=== PATIENT | male | born 1965 | race Two or more races ===

== ENCOUNTER 2024-11-04 18:10 | Inpatient (IN) | payer MEDICAID, OTHER ==
[~2024-11-04] VITALS: Ht 157.5 cm; Wt 78.7 kg
[2024-11-04 18:35] LABS: Basophils # (auto) 0 10 ^3/uL (0-0.2); Basophils % (auto) 0.3 % (0.0-2.0); Eosinophils # (auto) 0 10 ^3/uL (0-0.8); Eosinophils % (auto) 0.3 % (0.0-7.0); Hematocrit 45.4 % (41.0-53.0); Hemoglobin 15.5 g/dL (13.5-17.5); Lymphocytes # (auto) 3.3 10 ^3/uL (0.4-5.4); Lymphocytes % (auto) 26.1 % (10.0-50.0); Mean Corpuscular Hemoglobin 31.3 pg (28.0-32.0); Mean Corpuscular Volume 91.9 fL (80.0-100.0); Monocytes # (auto) 0.6 10 ^3/uL (0-1.3); Monocytes % (auto) 4.6 % (0.0-12.0); Neutrophils # (auto) 8.8 10 ^3/uL (1.6-8.6); Neutrophils % (auto) 68.7 % (37.0-80.0); Platelet Count (auto) 268 10^3/uL (140-450); Red Blood Cells 4.95 10^6/uL (4.5-5.90); Red Cell Distribution Width 13.4 % (11.8-14.3); White Blood Cell 12.7 10^3/uL (4.4-10.8)
--- NOTE | 2024-11-04 18:44 | ED.PDOC ---
Altered Mental Status HPI Comments 59-year-old male came to ER with sister due to altered level of consciousness. Per sister, patient has no medical problems, patient visiting from [place]. Patient last seen normal at 3:00 p.m. as he went for a nap. He woke up at 5:00 p.m., with slurred speech, weakness of both legs, imbalance, facial twitching, speaking incomprehensible words at times. Patient still follows commands. Sister denies any possible drug or alcohol intake. Denies any new medications. Blood sugar upon arrival was 153, with a blood pressure 139/70 mm Hg Chief Complaint: Altered level of consciousness Time Seen by MD: 18:43 Reviewed Notes: Nurses Notes Allergies: Coded Allergies: NO KNOWN ALLERGIES (Unverified , 11/04/24) Information Source: Patient, Relative (Sibling) Mode of Arrival: Ambulatory Severity: Unable to Care for Self Timing: Minutes Duration: Since onset Quality: Change in Behavior, Confusion History of: None Associated Signs and Symptoms: Slurred Speech Past Medical History PAST MEDICAL HISTORY: Denies Surgical History: Denies all surgeries Family History Family History: Reviewed,noncontributory to illness Social History Smoker: Non-Smoker Alcohol: Denies ETOH Use Drugs: Denies Drug Use Lives In: Home Unable to Obtain due to: Altered Mental Status Physical Exam General Appearance: No Apparent Distress, Normal HEENT: Normal ENT Inspection, Pharynx Normal, TMs Normal Neck: Full Range of Motion, Non-Tender, Normal, Normal Inspection Respiratory: Chest Non-Tender, Lungs Clear, No Accessory Muscle Use, No Respiratory Distress, Normal Breath Sounds Cardiovascular: No Edema, No JVD, No Murmur, No Gallop, Normal Peripheral Pulses, Regular Rate/Rhythm Breast Exam: Deferred Gastrointestinal: No Organomegaly, Non Tender, No Pulsatile Mass, Normal Bowel Sounds, Soft Genitalia: Deferred Pelvic: Deferred Rectal: Deferred Extremities: No calf tenderness, Normal capillary refill, Normal inspection, Normal range of motion, Non-tender, No pedal edema Musculoskeletal : Apperance: Normal Neurologic: Alert, glove cutter II-XII nml as Tested, No Motor Deficits, Normal Affect, Normal Mood, No Sensory Deficits, Other (NIH Stroke Scale/Score (NIHSS) from [email or web address] on 11/04/2024) Cerebellar Function: Normal Reflexes: Normal Skin: Dry, Normal Color, Warm Lymphatic: No Adenopathy Was a procedure done? Was a procedure done?: No Differential Diagnosis (ALOC) Differential Diagnosis: Encephalopathy, Sepsis, Hypoxemia, CVA, Drug Overdose, ETOH Intoxication X-Ray, Labs, Meds, VS Vital Signs Date Time Temp Pulse Resp B/P (MAP) Pulse Ox O2 Delivery O2 Flow Rate FiO2 11/04/24 20:03 91 14 94 Room Air* 0 21 11/04/24 20:03 98.0 91 14 120/74 (89) 94 98.0 11/04/24 18:49 88 12 98 Nasal Cannula* 3 32 11/04/24 18:49 88 12 115/74 (88) 98 11/04/24 18:30 97.2 91 18 139/73 (95) 99 97.2 Lab Test 11/04/24 18:46 11/04/24 18:22 11/04/24 18:18 11/04/24 18:01 Range/Units POC Glucose 146 H 133 H 70-106 mg/dl White Blood Count 12.7 H 4.4-10.8 10^3/uL Red Blood Count 4.95 4.5-5.90 10^6/uL Hemoglobin 15.5 13.5-17.5 g/dL Hematocrit 45.4 41.0-53.0 % Mean Corpuscular Volume 91.9 80.0-100.0 fL Mean Corpuscular Hemoglobin 31.3 28.0-32.0 pg Mean Corpuscular Hemoglobin Concent 34.0 32.0-36.0 g/dL Red Cell Distribution Width 13.4 11.8-14.3 % Platelet Count 268 140-450 10^3/uL Mean Platelet Volume 8.1 6.9-10.8 fL Neutrophils (%) (Auto) 68.7 37.0-80.0 % Lymphocytes (%) (Auto) 26.1 10.0-50.0 % Monocytes (%) (Auto) 4.6 0.0-12.0 % Eosinophils (%) (Auto) 0.3 0.0-7.0 % Basophils (%) (Auto) 0.3 0.0-2.0 % Neutrophils # (Auto) 8.8 H 1.6-8.6 10 ^3/uL Lymphocytes # (Auto) 3.3 0.4-5.4 10 ^3/uL Monocytes # (Auto) 0.6 0-1.3 10 ^3/uL Eosinophils # (Auto) 0 0-0.8 10 ^3/uL Basophils # (Auto) 0 0-0.2 10 ^3/uL Nucleated Red Blood Cells 0.0 % Prothrombin Time 10.7 9.3-11.8 sec Prothrombin Time INR 1.01 0.9-1.15 Activated Partial Thromboplast Time 23.5 L 24.5-34.5 SEC Sodium Level 138 136-145 mmol/L Potassium Level 3.9 3.5-5.1 mmol/L Chloride Level 106 98-107 mmol/L Carbon Dioxide Level 22 20-31 mmol/L Anion Gap 10 5-15 Blood Urea Nitrogen 17 9-23 mg/dL Creatinine 1.28 0.700-1.30 mg/dL Glomerular Filtration Rate Calc 65 >90 mL/min BUN/Creatinine Ratio 13.3 10.0-20.0 Serum Glucose 141 H 74-106 mg/dL Calcium Level 9.4 8.7-10.4 mg/dL Magnesium Level 2.5 1.6-2.6 mg/dL Total Bilirubin 0.6 0.2-1.0 mg/dL Aspartate Amino Transferase (AST) 29 13-40 U/L Alanine Aminotransferase (ALT) 21 7-40 U/L Alkaline Phosphatase 102 46-116 U/L Total Protein 7.5 5.7-8.2 g/dL Albumin 4.6 3.2-4.8 g/dL Plasma/Serum Blood Alcohol < 3.0 <10 mg/dL Salicylates Level < 3.0 -30 mg/dL Acetaminophen Level < 2.0 L 10.0-20.0 UG/ML Current Medications Medications (Trade) Dose Ordered Sig/Thong Route Start Time Stop Time Status Last Admin Sodium Chloride 1,000 ml @ 1,000 mls/hr Q1H ONCE IVB 11/04/24 19:15 11/04/24 20:14 DC 11/04/24 19:18 EXAM: CT Head Without Intravenous Contrast CLINICAL INDICATION: ALOC, slurred speech TECHNIQUE: Axial computed tomography images of the head/brain without intravenous contrast. This CT exam was performed using one or more of the following dose reduction techniques: automated exposure control, adjustment of the mA and/or kV according to patient size, and/or use of iterative reconstruction technique. CONTRAST: RADIATION DOSE: CTDIvol = 55.18 mGy, DLP = 963.52 mGy-cm COMPARISON: None FINDINGS: BRAIN AND EXTRA-AXIAL SPACES: The cerebral and cerebellar sulci are prominent consistent with brain atrophy. No acute intracranial hemorrhage, midline shift or mass effect. If symptoms persist, further evaluation with MRI is recommended. Mild areas of decreased attenuation in the deep cerebral white matter are consistent with mild small vessel ischemic/degenerative changes. BONES/JOINTS: Unremarkable. No acute fracture. SOFT TISSUES: Unremarkable. SINUSES: Unremarkable as visualized. No acute sinusitis. MASTOID AIR CELLS: Unremarkable as visualized. No mastoid effusion. OTHER FINDINGS: . . IMPRESSION: 1. Generalized brain atrophy. 2. No acute intracranial hemorrhage, midline shift or mass effect. If symptoms persist, further evaluation with MRI is recommended. 3. Mild small vessel ischemic/degenerative changes. Time of 1ST Reevaluation: 18:38 Reevaluation 1ST: Unchanged Patient Education/Counseling: Diagnosis, Treatment Family Education/Counseling: Diagnosis, Treatment Departure 1 Departure Time of Disposition: 20:19 Impression: Primary Impression: Metabolic encephalopathy Disposition: ADMITTED INPATIENT Admit to: Tele Condition: Guarded Discharged With: Self Comments NIH Stroke Scale/Score (NIHSS) from [email or web address] on 11/04/2024 RESULT SUMMARY: 4 points NIH Stroke Scale INPUTS: 1A: Level of consciousness > 0 = Alert; keenly responsive 1B: Ask month and age > 2 = 0 questions right 1C: 'Blink eyes' & 'squeeze hands' > 0 = Performs both tasks 2: Horizontal extraocular movements > 0 = Normal 3: Visual miller > 0 = No visual loss 4: Facial palsy > 0 = Normal symmetry 5A: Left arm motor drift > 0 = No drift for 10 seconds 5B: Right arm motor drift > 0 = No drift for 10 seconds 6A: Left leg motor drift > 0 = No drift for 5 seconds 6B: Right leg motor drift > 0 = No drift for 5 seconds 7: Limb Ataxia > 0 = No ataxia 8: Sensation > 0 = Normal; no sensory loss 9: Language/aphasia > 1 = Mild-moderate aphasia: some obvious changes, without significant limitation 10: Dysarthria > 1 = Mild-moderate dysarthria: slurring but can be understood 11: Extinction/inattention > 0 = No abnormality Acute Altered Mental Status with Speech Changes Chief Complaint: Confusion and slurred speech History of Present Illness: 59-year-old male visiting from [place], presented to ED accompanied by his sister with a 2-hour history of confusion and difficulty speaking with slurred speech. Patient was evaluated using the NIH Stroke Scale (NIHSS) with a score of 4, indicating a mild stroke severity. Neurology was consulted and determined patient was not a candidate for thrombolytics due to lack of focal deficits. Physical Exam: General: Alert with altered mental status Neurological: Presents with slurred speech NIHSS score: 4 Lab Results: WBC: 12.7, no left shift Chemistry panel: Unremarkable Acetaminophen level: Not detected Alcohol level: Not detected Imaging and Other Relevant Results: CT Head: Degenerative changes and atrophy, no acute pathology CT Angiogram Head/Neck: No evidence of large vessel occlusion MRI Brain: Pending EEG: Pending Medical Decision Making: Summary Statement: 59-year-old male presents with acute onset confusion and slurred speech, found to have elevated WBC count with otherwise negative initial workup. Problem List: 1. Acute metabolic encephalopathy 2. Elevated WBC count 3. Speech changes Differential Diagnosis: 1. Metabolic encephalopathy 2. Acute stroke 3. Seizure 4. Infection 5. Toxic ingestion ED Course: Patient evaluated with CT head/CTA, labs. Neurology consulted. Plan for admission with further workup including MRI and EEG. Assessment and Plan: 1. Acute Metabolic Encephalopathy: - Admit to hospital for further evaluation - Neurology consultation obtained - Pending MRI brain and EEG - Monitor mental status 2. Elevated WBC Count: - Monitor for signs of infection - Complete infectious workup during admission 3. Disposition: - Admit to hospital under Neurology service - Continue diagnostic workup as recommended by Neurology Billing Information: ICD-10: G93.41 - Metabolic encephalopathy ICD-10: R47.1 - Dysarthria and slurred speech ICD-10: R41.0 - Disorientation, unspecified Critical Care Note Critical Care Time?: Yes (35 min-critical care time only) Critical care comment: Altered level of consciousnessTotal critical care time: Approximately 36 minutes Due to a high probability of clinically significant, life threatening deterioration, the patient required my highest level of preparedness to intervene emergently and I personally spent this critical care time directly and personally managing the patient. This critical care time included obtaining a history; examining the patient; pulse oximetry; ordering and review of studies; arranging urgent treatment with development of a management plan; evaluation of patient's response to treatment; frequent reassessment; and, discussions with other providers. This critical care time was performed to assess and manage the high probability of imminent, life-threatening deterioration that could result in multi-organ failure. It was exclusive of separately billable procedures and treating other patients. Stability Stability form required: No Heart Score Heart Score: Heart Score Response (Comments) Value History N/A 0 EKG N/A 0 Age N/A 0 Risk Factors N/A 0 Troponin N/A 0 Total 0 I personally scribed for CADEN SAEED MD ([email or web address]) on 11/04/24 at 18:44. Electronically submitted by James Maria ([email or web address]). I personally scribed for CADEN SAEED MD ([email or web address]) on 11/04/24 at 19:03. Electronically submitted by James Maria ([email or web address]). CADEN SAEED MD Nov 04, 2024 18:44
[2024-11-04 18:49] VITALS: PULSE 88; RESP 12; O2SAT 98
--- NOTE | 2024-11-04 18:59 | DVH ---
EXAM: CT Head Without Intravenous Contrast CLINICAL INDICATION: ALOC, slurred speech TECHNIQUE: Axial computed tomography images of the head/brain without intravenous contrast. This CT exam was performed using one or more of the following dose reduction techniques: automated exposure control, adjustment of the mA and/or kV according to patient size, and/or use of iterative reconstru ction technique. CONTRAST: RADIATION DOSE: CTDIvol = 55.18 mGy, DLP = 963.52 mGy-cm COMPARISON: None FINDINGS: BRAIN AND EXTRA-AXIAL SPACES: The cerebral and cerebellar sulci are prominent consistent with brain atrophy. No acute intracranial hemorrhage, midline shift or mass effect. If symptoms persist, furth er evaluation with MRI is recommended. Mild areas of decreased attenuation in the deep cerebral whit e matter are consistent with mild small vessel ischemic/degenerative changes. BONES/JOINTS: Unremarkable. No acute fracture. SOFT TISSUES: Unremarkable. SINUSES: Unremarkable as visualized. No acute sinusitis. MASTOID AIR CELLS: Unremarkable as visualized. No mastoid effusion. OTHER FINDINGS: . . IMPRESSION: 1. Generalized brain atrophy. 2. No acute intracranial hemorrhage, midline shift or mass effect. If symptoms persist, further eval uation with MRI is recommended. 3. Mild small vessel ischemic/degenerative changes.
[2024-11-04 19:10] LABS: Alanine Aminotransferase 21 U/L (7-40); Albumin 4.6 g/dL (3.2-4.8); Alkaline Phosphatase 102 U/L (46-116); Anion Gap 10 (5-15); Aspartate Aminotransferase 29 U/L (13-40); BUN/Creatinine Ratio 13.3 (10.0-20.0); Bilirubin, Total 0.6 mg/dL (0.2-1.0); Blood Urea Nitrogen 17 mg/dL (9-23); Calcium 9.4 mg/dL (8.7-10.4); Carbon Dioxide 22 mmol/L (20-31); Chloride 106 mmol/L (98-107); Magnesium 2.5 mg/dL (1.6-2.6); Potassium 3.9 mmol/L (3.5-5.1); Sodium 138 mmol/L (136-145); Total Protein 7.5 g/dL (5.7-8.2)
[2024-11-04] MEDS: SODIUM CHLORIDE 0.9% 1,000 ML IVB ONE (19:18)
--- NOTE | 2024-11-04 19:19 | DVHINCON2 ---
Date of Consultation Date Date: [facility] Note # Demographics Consult Type: Acute Stroke Level 1 (0-4.5 hrs) Patient Location: Emergency Room First Name: Candido Last Name: arlette August Date of : 1965 Age: 59 Gender: Male Facility: [facility] Time of Initial Page (): 11/04/2024 19:04 Time of Return Call (): 11/04/2024 19:04 # HPI History: 59yom who presents with AMS, dysarthria, abnormal movements. Woke up from a nap and had some dysarthria and abnormal movements on his face, imbalance. On exam, he facial grimacing and twitching resembling tardive dyskinesia. He denies any medication use. Was observed ambulating independently Last Known Normal: - I have collected independent history specific to time last normal or last known well. We have collaborated with the provider and at this time, we have the most current timeline with the information that is available. 3PM # Scores Time of exam and NIHSS (): 11/04/2024 19:06 Level of Consciousness 1a: [0] = Alert; keenly responsive LOC Questions 1b: [0] = Answers both questions correctly LOC Commands 1c: [0] = Performs both tasks correctly Best Gaze 2: [0] = Normal Visual 3: [0] = No visual loss Facial Palsy 4: [0] = Normal symmetrical movements Motor Arm Left 5a: [0] = No drift Motor Arm Right 5b: [0] = No drift Motor Leg Left 6a: [0] = No drift Motor Leg Right 6b: [0] = No drift Limb Ataxia 7: [0] = Absent Sensory 8: [0] = Normal Best Language 9: [0] = No aphasia Dysarthria 10: [0] = Normal Extinction and Inattention 11: [0] = No abnormality NIHSS Total: 0 # Data Time Head CT personally read by me (): 11/04/2024 19:[address]: - no bleed - preliminarily reviewed by me, please refer to radiology read for official reading # Assessment Impression: - Altered Mental Status # Plan Thrombolytic/Intervention: NOT IV Thrombolysis or IA Intervention candidate Thrombolytic Exclusion (< 3 hour window): - NIHSS = 0 - non-disabling deficit Thrombolytic Exclusion: - other (see below) suspect less likely stroke Intraarterial Exclusion: - clinical exam not consistent with presence of large vessel occlusion (LVO), can reconsider if LVO found on vascular imaging Labs: Full infectious and metabolic workup for AMS B12, folate, thyroid, thiamine, ammonia Imaging: (urgency: STAT): - CT Angiogram Head and CT Angiogram Neck AND call back with results if abnormal Imaging: (urgency: routine): - MRI Brain with AND without contrast Diagnostic Test: - EEG Medication: PRN benzo for symptomatic treatment Other: - If patient has any neurological deterioration please call me back immediately # Logistics Attestation of consult completion: The patient is located at: [facility]. Facility staff participated in the visit. I performed this telemedicine visit from my offsite office utilizing interactive 2 way audio and visual telecommunication technology. Total time spent in telemedicine encounter: I spent 23 minutes reviewing clinical data and/or imaging, obtaining history, examining the patient, communicating with the onsite care team, and in preparation of this report. # Demographics First Name: Candido Last Name: arlette August Facility: [facility] History of Present Illness History of Present Illness Candido August is a 59 year old male who presents with Allergies: Coded Allergies: NO KNOWN ALLERGIES (Unverified , 11/04/24) Physical Examination General Examination: Last Vital sign Vital Signs Date Time Temp Pulse Resp B/P (MAP) Pulse Ox O2 Delivery O2 Flow Rate FiO2 11/04/24 18:49 88 12 98 Nasal Cannula* 3 32 11/04/24 18:49 115/74 (88) 11/04/24 18:30 97.2 97.2 General: General: No apparent distress, appears comfortable. Cooperative. Neurological Examination: Neurological Examination: Mental Status: Cranial Nerves: Motor Examination: Reflexes: Sensory: Coordination: Gait: Labs: Labs: Laboratory Tests Test 11/04/24 18:01 11/04/24 18:18 11/04/24 18:22 11/04/24 18:46 Range/Units Salicylates Level Pending Acetaminophen Level Pending White Blood Count 12.7 H 4.4-10.8 10^3/uL Red Blood Count 4.95 4.5-5.90 10^6/uL Hemoglobin 15.5 13.5-17.5 g/dL Hematocrit 45.4 41.0-53.0 % Mean Corpuscular Volume 91.9 80.0-100.0 fL Mean Corpuscular Hemoglobin 31.3 28.0-32.0 pg Mean Corpuscular Hemoglobin Concent 34.0 32.0-36.0 g/dL Red Cell Distribution Width 13.4 11.8-14.3 % Platelet Count 268 140-450 10^3/uL Mean Platelet Volume 8.1 6.9-10.8 fL Neutrophils (%) (Auto) 68.7 37.0-80.0 % Lymphocytes (%) (Auto) 26.1 10.0-50.0 % Monocytes (%) (Auto) 4.6 0.0-12.0 % Eosinophils (%) (Auto) 0.3 0.0-7.0 % Basophils (%) (Auto) 0.3 0.0-2.0 % Neutrophils # (Auto) 8.8 H 1.6-8.6 10 ^3/uL Lymphocytes # (Auto) 3.3 0.4-5.4 10 ^3/uL Monocytes # (Auto) 0.6 0-1.3 10 ^3/uL Eosinophils # (Auto) 0 0-0.8 10 ^3/uL Basophils # (Auto) 0 0-0.2 10 ^3/uL Nucleated Red Blood Cells 0.0 % Prothrombin Time Pending Prothrombin Time INR Pending Activated Partial Thromboplast Time Pending Sodium Level Pending Potassium Level Pending Chloride Level Pending Carbon Dioxide Level Pending Anion Gap Pending Blood Urea Nitrogen Pending Creatinine Pending Glomerular Filtration Rate Calc Pending BUN/Creatinine Ratio Pending Serum Glucose Pending Calcium Level Pending Magnesium Level Pending Total Bilirubin Pending Aspartate Amino Transferase (AST) Pending Alanine Aminotransferase (ALT) Pending Alkaline Phosphatase Pending Total Protein Pending Albumin Pending Plasma/Serum Blood Alcohol Pending POC Glucose 133 H 146 H 70-106 mg/dl Assessment/Plan Assessment/Plan Assessment and Plan:Candido August is a 59 year old male who presen ts with Plan discussed with: Patient CARMINE CRANE MD Nov 04, 2024 19:19
[2024-11-04 19:23] LABS: Acetaminophen < 2.0 UG/ML (10.0-20.0); Salicylate < 3.0 mg/dL (-30)
[2024-11-04 19:23] LABS: Glucose 141 mg/dL (74-106)
[2024-11-04] MEDS ORDERED: LORazepam 2MG/ML-1ML VIAL IV ONE (19:30)
[2024-11-04] MEDS ORDERED: diphenhdrAMINE HCL 50 MG/1 ML VL IV ONE (19:30)
[2024-11-04 19:31] LABS: INR 1.01 (0.9-1.15); Partial Thromboplastin Time 23.5 SEC (24.5-34.5); Prothrombin Time 10.7 sec (9.3-11.8)
[2024-11-04 19:38] LABS: Blood Alcohol < 3.0 mg/dL (<10)
[2024-11-04 20:03] VITALS: PULSE 91; RESP 14; O2SAT 94
[2024-11-04] MEDS: IOHEXOL 350 MG/ML 100ML IJ ONE (21:08)
--- NOTE | 2024-11-04 21:22 | DVH ---
CHEST RADIOGRAPH Indication: ALOC Technique: Single frontal view of the chest was obtained Comparison: None FINDINGS: Lines and Tubes: None Lungs: No focal consolidation. 2 mm metallic density over the left lung apex which may be external to the patient . recommend clinical correlation. Pleura: No effusion. No pneumothorax. Cardiomediastinal contours: Unremarkable Bones: No acute osseous abnormality. Chronic deformity of the left midclavicle. IMPRESSION: No acute cardiopulmonary disease.
[2024-11-04] MEDS ORDERED: DOCUSATE SOD 100 MG CAP PO PRN (22:00)
[2024-11-04] MEDS ORDERED: ONDANSETRON HCL 4 MG/2 ML VIAL IV PRN (22:00)
[2024-11-04] MEDS ORDERED: ACETAMINOPHEN 325 MG TAB PO PRN (22:00)
[2024-11-04] MEDS ORDERED: HYDROcodone-ACET 5/325MG TAB PO PRN (22:00)
[2024-11-04] MEDS ORDERED: NITROGLYCERIN 0.4 MG SL TAB SL PRN (22:00)
[2024-11-04] MEDS ORDERED: MORPHINE SULFATE INJ 2 MG/ml SYRG IV PRN (22:00)
--- NOTE | 2024-11-04 22:07 | DVHHP2 ---
History of Present Illness Reason for Visit: Metabolic encephalopathy History of Present Illness The patient is a 59-year-old male who denies past medical history presented to [facility] ED for evaluation of altered level of consciousness. As reported by sister, patient has no medical problem, was visiting from [place], experiencing slurred speech, weakness of both legs, facial twisting, speaking incomprehensibly, unsteady gait, getting worse that prompted this visit. Patient was seen and evaluated in the ED, laboratory data shows WBC 12.7, platelets 268, sodium 138, potassium 3.9, BUN 17, creatinine 1.28, glucose 141, blood pressure 120/74, heart rate 92, temperature 98.0 F, O2 saturation 94% on oxygen. Head CT revealing generalized brain atrophy, mild small-vessel ischemia/degenerative changes; no acute intracranial hemorrhage, midline shift or mass effect. Please see medication orders section in the computer. On my assessment, patient is a alert oriented x3, denied chest pain, no headache, no dizziness, no diaphoresis, no shortness of breaths, no nausea, no vomiting, no fever, no chills. Patient was admitted for further evaluation and medical management. Dermatology: Psoriasis Past Medical History Denies past medical history Past Surgical History Denies all surgeries Family History Reviewed, noncontributory to the management of this case. Past Social History The patient lives at home, denies smoking, alcohol or illicit drugs abuse. Review of Systems Constitutional: Yes: Weakness; No: Fever, Chills, Sweats, Malaise, Other Eyes: No: Pain, Vision change, Conjunctivae inflammation, Eyelid inflammation, Other, Redness ENT: No: Ear pain, Ear discharge, Nose pain, Nose discharge, Nose congestion, Mouth pain, Mouth swelling, Throat pain, Throat swelling, Other Respiratory: No: Cough, Dry, Shortness of breath, SOB with excertion, Wheezing, Hemoptysis, Pleuritic Pain, Sputum, Wheezing, Other Cardiovascular: No: Chest Pain, Palpitations, Orthopnea, Paroxysmal Noc. Dyspnea, Edema, Lt Headedness, Other Gastrointestinal: No: Nausea, Vomiting, Abdominal Pain, Diarrhea, Constipation, Melena, Hematochezia, Other Genitourinary: No Dysuria, No Frequency, No Incontinence, No Hematuria, No Retention, No Other Musculoskeletal: No: other, neck pain, shoulder pain, arm pain, back pain, hand pain, leg pain, foot pain Skin: No: Rash, Lesions, Jaundice, Bruising, Other Neurological: Confusion, Other (Altered level of consciousness); No: Weakness, Numbness, Incoordination, Change in speech, Seizures Allergies: Coded Allergies: NO KNOWN ALLERGIES (Unverified , 11/04/24) Exam Vital Signs Vital Signs Date Time Temp Pulse Resp B/P (MAP) Pulse Ox O2 Delivery O2 Flow Rate FiO2 11/04/24 20:03 91 14 94 Room Air* 0 21 11/04/24 20:03 98.0 120/74 (89) 98.0 General Appearance: Alert, Oriented X3, Cooperative, No acute distress HEENT: Atraumatic, PERRLA, EOMI, Mucous membr. moist/pink Respiratory: Clear to auscultation, Normal air movement Cardiovascular: Regular rate, Normal S1, Normal S2, No murmurs Abdominal: Normal bowel sounds, Soft, No tenderness, No hepatospenomegaly, No masses Extremities: No clubbing, No cyanosis, No edema, Normal pulses, No tenderness/swelling Skin: No rashes, No breakdown, No significant lesion Neuro: Normal speech, Normal tone, Sensation intact, Cranial nerves 3-12 NL, Reflexes 2+, Other (Generalized weakness) Psych/Mental Status: Mood NL, Other (Altered mental status) Labs/Xrays Labs Test 11/04/24 18:46 11/04/24 18:18 11/04/24 18:01 Range/Units POC Glucose 146 H 70-106 mg/dl White Blood Count 12.7 H 4.4-10.8 10^3/uL Red Blood Count 4.95 4.5-5.90 10^6/uL Hemoglobin 15.5 13.5-17.5 g/dL Hematocrit 45.4 41.0-53.0 % Mean Corpuscular Volume 91.9 80.0-100.0 fL Mean Corpuscular Hemoglobin 31.3 28.0-32.0 pg Mean Corpuscular Hemoglobin Concent 34.0 32.0-36.0 g/dL Red Cell Distribution Width 13.4 11.8-14.3 % Platelet Count 268 140-450 10^3/uL Mean Platelet Volume 8.1 6.9-10.8 fL Neutrophils (%) (Auto) 68.7 37.0-80.0 % Lymphocytes (%) (Auto) 26.1 10.0-50.0 % Monocytes (%) (Auto) 4.6 0.0-12.0 % Eosinophils (%) (Auto) 0.3 0.0-7.0 % Basophils (%) (Auto) 0.3 0.0-2.0 % Neutrophils # (Auto) 8.8 H 1.6-8.6 10 ^3/uL Lymphocytes # (Auto) 3.3 0.4-5.4 10 ^3/uL Monocytes # (Auto) 0.6 0-1.3 10 ^3/uL Eosinophils # (Auto) 0 0-0.8 10 ^3/uL Basophils # (Auto) 0 0-0.2 10 ^3/uL Nucleated Red Blood Cells 0.0 % Prothrombin Time 10.7 9.3-11.8 sec Prothrombin Time INR 1.01 0.9-1.15 Activated Partial Thromboplast Time 23.5 L 24.5-34.5 SEC Sodium Level 138 136-145 mmol/L Potassium Level 3.9 3.5-5.1 mmol/L Chloride Level 106 98-107 mmol/L Carbon Dioxide Level 22 20-31 mmol/L Anion Gap 10 5-15 Blood Urea Nitrogen 17 9-23 mg/dL Creatinine 1.28 0.700-1.30 mg/dL Glomerular Filtration Rate Calc 65 >90 mL/min BUN/Creatinine Ratio 13.3 10.0-20.0 Serum Glucose 141 H 74-106 mg/dL Calcium Level 9.4 8.7-10.4 mg/dL Magnesium Level 2.5 1.6-2.6 mg/dL Total Bilirubin 0.6 0.2-1.0 mg/dL Aspartate Amino Transferase (AST) 29 13-40 U/L Alanine Aminotransferase (ALT) 21 7-40 U/L Alkaline Phosphatase 102 46-116 U/L Total Protein 7.5 5.7-8.2 g/dL Albumin 4.6 3.2-4.8 g/dL Plasma/Serum Blood Alcohol < 3.0 <10 mg/dL Salicylates Level < 3.0 -30 mg/dL Acetaminophen Level < 2.0 L 10.0-20.0 UG/ML PATIENT: JAIMIE MCNALLY: [id number] UNIT: [id number] : 1965 LOC: ER ROOM / BED: / AGE / SEX: 59 / M ADM STATUS: REG ER SERVICE 1825 ORDERING PHYSICIAN: CADEN SAEED MD PROCEDURE(s): CTH - STROKE CTH REASON: ALOC, slurred speech ORDER NUMBER(s): [id number], ACCESSION NUMBER(s): [id number] EXAM: CT Head Without Intravenous Contrast CLINICAL INDICATION: ALOC, slurred speech TECHNIQUE: Axial computed tomography images of the head/brain without intravenous contrast. This CT exam was performed using one or more of the following dose reduction techniques: automated exposure control, adjustment of the mA and/or kV according to patient size, and/or use of iterative reconstruction technique. CONTRAST: RADIATION DOSE: CTDIvol = 55.18 mGy, DLP = 963.52 mGy-cm COMPARISON: None FINDINGS: BRAIN AND EXTRA-AXIAL SPACES: The cerebral and cerebellar sulci are prominent consistent with brain atrophy. No acute intracranial hemorrhage, midline shift or mass effect. If symptoms persist, further evaluation with MRI is recommended. Mild areas of decreased attenuation in the deep cerebral white matter are consistent with mild small vessel ischemic/degenerative changes. BONES/JOINTS: Unremarkable. No acute fracture. SOFT TISSUES: Unremarkable. SINUSES: Unremarkable as visualized. No acute sinusitis. MASTOID AIR CELLS: Unremarkable as visualized. No mastoid effusion. OTHER FINDINGS: IMPRESSION: 1. Generalized brain atrophy. 2. No acute intracranial hemorrhage, midline shift or mass effect. If symptoms persist, further evaluation with MRI is recommended. 3. Mild small vessel ischemic/degenerative changes. ORDERING PHYSICIAN: CADEN SAEED MD PROCEDURE(s): CXRP - CHEST PORTABLE REASON: ALOC ORDER NUMBER(s): [id number], ACCESSION NUMBER(s): [id number] CHEST RADIOGRAPH Indication: ALOC Technique: Single frontal view of the chest was obtained Comparison: None FINDINGS: Lines and Tubes: None Lungs: No focal consolidation. 2 mm metallic density over the left lung apex which may be external to the patient. recommend clinical correlation. Pleura: No effusion. No pneumothorax. Cardiomediastinal contours: Unremarkable Bones: No acute osseous abnormality. Chronic deformity of the left midclavicle. IMPRESSION: No acute cardiopulmonary disease. Assessment/Plan Assessment/Plan Metabolic encephalopathy Confusion state Leukocytosis, unspecified Generalized weakness Plan 1. Admit to telemetry unit 2. Breathing treatment 3. Pain control management 4. IV antibiotic management 5. Management of fluids and electrolytes 6. Consultation for Neurology/hospitalist 7. Diagnostic test head CT 8. DVT prophylaxis on SCDs 9. Repeat labs CBC, CMP in a.m. 10. Continue with current medical management 11. Treatment plan discussed with patient and RN. Patient verbalized understanding. Plan discussed with: Patient, Other (RN) Problem List: (1) Metabolic encephalopathy (2) Confusion state (3) Leukocytosis, unspecified (4) Generalized weakness Date of Service: Nov 04, 2024 Billing Provider: LYDIA KENT DNP Common Visit Codes: [id number] INP/OBS CARE (HIGH) LYDIA KENT DNP Nov 04, 2024 22:07
[2024-11-04] MEDS: cefTRIAXone 1GM/50ML D5W 50 ML IV ONE (22:23)
[2024-11-04] MEDS: SODIUM CHLORIDE 0.9% 1,000 ML IV SCH (22:25)
--- NOTE | 2024-11-04 22:50 | DVH ---
EXAM: CT ANGIO HEAD/NECK HISTORY: ALOC, slurred speech TECHNIQUE: Helical axial scans of the head and neck obtained during the arterial phase of intravenous contrast enhancement. Multiplanar reformats. Postprocessing MIP and 3-D images. One or more of the f ollowing radiation dose reduction techniques were used for this examination: automated exposure contr ol, adjustment of the mA and/or kV according to patient size, use of iterative reconstruction techniq ue. Determination of the degree of stenosis in the internal carotid arteries is obtained using measureme nts of distal internal carotid diameter (directly or indirectly) as the denominator for stenosis papi urement. The method utilized is similar to that utilized in the [place] Symptomatic Carotid E ndarterectomy Trial (NASCET) method. If the degree of stenosis is greater than 30%, the actual percen tage stenosis is given in the body of the report COMPARISON: Noncontrast head CT obtained earlier the same day. FINDINGS: VISUALIZED AORTIC ARCH: The visualized aortic arch appears normal in caliber. The visualized subclavian arteries appear patent. RIGHT CAROTID SYSTEM CERVICAL: Common carotid artery: Patent Internal carotid artery: Patent External carotid artery: Patent LEFT CAROTID SYSTEM CERVICAL: Common carotid artery: Patent Internal carotid artery: Patent External carotid artery: Patent VERTEBROBASILAR SYSTEM: Right vertebral artery: Patent Left vertebral artery: Patent Basilar artery: Patent RIGHT INTRACRANIAL VASCULATURE Internal carotid artery: Patent Middle cerebral artery: Patent Anterior cerebral artery: Patent LEFT INTRACRANIAL VASCULATURE Internal carotid artery: Patent Middle cerebral artery: Patent Anterior cerebral artery: Patent IMPRESSION: No significant stenoses, occlusions or sizable aneurysmal dilatation is identified involving the pearl r cervical and intracranial arterial vasculature. If there is persistent clinical concern, MRI is recommended to further evaluate.
[2024-11-05] VITALS (10 sets, daily range): BP systolic 98–126; BP diastolic 57–79; PULSE 56–73; RESP 14–18; TEMP 97.4–99.5; O2SAT 98–100
[2024-11-05 05:42] LABS: Basophils # (auto) 0 10 ^3/uL (0-0.2); Basophils % (auto) 0.2 % (0.0-2.0); Eosinophils # (auto) 0 10 ^3/uL (0-0.8); Eosinophils % (auto) 0.4 % (0.0-7.0); Hematocrit 40.7 % (41.0-53.0); Hemoglobin 14.1 g/dL (13.5-17.5); Lymphocytes # (auto) 1.9 10 ^3/uL (0.4-5.4); Lymphocytes % (auto) 19.5 % (10.0-50.0); Mean Corpuscular Hemoglobin 31.8 pg (28.0-32.0); Mean Corpuscular Hgb Conc. 34.7 g/dL (32.0-36.0); Mean Corpuscular Volume 91.7 fL (80.0-100.0); Monocytes # (auto) 0.8 10 ^3/uL (0-1.3); Monocytes % (auto) 8.4 % (0.0-12.0); Neutrophils # (auto) 6.8 10 ^3/uL (1.6-8.6); Neutrophils % (auto) 71.5 % (37.0-80.0); Platelet Count (auto) 240 10^3/uL (140-450); Red Blood Cells 4.43 10^6/uL (4.5-5.90); Red Cell Distribution Width 13.6 % (11.8-14.3); White Blood Cell 9.5 10^3/uL (4.4-10.8)
[2024-11-05 06:02] LABS: Alanine Aminotransferase 16 U/L (7-40); Albumin 3.6 g/dL (3.2-4.8); Alkaline Phosphatase 93 U/L (46-116); Anion Gap 8 (5-15); Aspartate Aminotransferase 18 U/L (13-40); BUN/Creatinine Ratio 12.3 (10.0-20.0); Bilirubin, Total 0.4 mg/dL (0.2-1.0); Blood Urea Nitrogen 13 mg/dL (9-23); Calcium 9.2 mg/dL (8.7-10.4); Carbon Dioxide 24 mmol/L (20-31); Potassium 3.8 mmol/L (3.5-5.1); Sodium 140 mmol/L (136-145)
[2024-11-05 06:04] LABS: Chloride 108 mmol/L (98-107); Glucose 144 mg/dL (74-106)
[2024-11-05] MEDS: cefTRIAXone 1GM/50ML D5W 50 ML IV SCH (09:17)
--- NOTE | 2024-11-05 18:36 | DVHPN2 ---
Subjective Overnight events noted. Patient is currently waiting for MRI brain Reviewed: Care Plan Changes from previous H/P or p: No Changes Eyes: No Pain, No Vision change, No Conjunctivae inflammation, No Eyelid inflammation, No Other, No Redness ENT: No Ear pain, No Ear discharge, No Nose pain, No Nose discharge, No Nose congestion, No Mouth pain, No Mouth swelling, No Throat pain, No Throat swelling, No Other Cardiovascular: No Chest Pain, No Palpitations, No Orthopnea, No Paroxysmal Noc. Dyspnea, No Edema, No Lt Headedness, No Other Respiratory: No Cough, No Dry, No Shortness of breath, No SOB with excertion, No Wheezing, No Hemoptysis, No Pleuritic Pain, No Sputum, No Other Gastrointestinal: No Nausea, No Vomiting, No Abdominal Pain, No Diarrhea, No Constipation, No Melena, No Hematochezia, No Other Genitourinary: No Dysuria, No Frequency, No Incontinence, No Hematuria, No Retention, No Other Musculoskeletal: No other, No neck pain, No shoulder pain, No arm pain, No back pain, No hand pain, No leg pain, No foot pain Skin: No Rash, No Lesions, No Jaundice, No Bruising, No Other Objective Vitals Vital Signs Date Time Temp Pulse Resp B/P (MAP) Pulse Ox O2 Delivery O2 Flow Rate FiO2 11/05/24 16:51 97.6 59 16 100/59 (73) 99 97.6 11/05/24 08:00 Nasal Cannula* 3 32 Intake/Output Intake and Output 11/05/24 07:00 Intake Total 800 ml Balance 800 ml Intake Oral 500 ml IV Total 300 ml Exam HEENT pupils are reactive Neck is supple CVS S1-S2 regular rate and rhythm Respiratory diminished breath sounds bases GI positive bowel sound Extremity no edema [employer] no motor deficit Medications Current Medications Medications Dose Ordered Sig/Thong Route Start Time Stop Time Status Last Admin Dose Admin Ceftriaxone Sodium 50 ml @ 100 mls/hr DAILY@09 IV 11/05/24 09:00 11/05/24 09:17 100 MLS/HR Sodium Chloride 1,000 ml @ 60 mls/hr [id number] IV 11/04/24 22:00 11/05/24 16:03 60 MLS/HR Acetaminophen/ Hydrocodone Bitart 1 tab Q4HP PRN PO 11/04/24 22:00 Ondansetron HCl 4 mg Q4HP PRN IV 11/04/24 22:00 Docusate Sodium 100 mg BIDPRN PRN PO 11/04/24 22:00 Acetaminophen 650 mg Q6HP PRN PO 11/04/24 22:00 Nitroglycerin 0.4 mg Q5MINP PRN SL 11/04/24 22:00 Morphine Sulfate 2 mg Q30M PRN IV 11/04/24 22:00 Laboratory Results Laboratory Tests 11/05/24 04:53 Chemistry Test 11/05/24 04:53 Albumin 3.6 g/dL (3.2-4.8) Calcium Level 9.2 mg/dL (8.7-10.4) Total Protein 6.0 g/dL (5.7-8.2) LFT Test 11/05/24 04:53 Alanine Aminotransferase (ALT) 16 U/L (7-40) Alkaline Phosphatase 93 U/L (46-116) Aspartate Amino Transferase (AST) 18 U/L (13-40) Total Bilirubin 0.4 mg/dL (0.2-1.0) Assessment/Plan Assessment/Plan 59-year-old male who initially presented to the hospital with altered mental status dysarthria currently ruling out acute CVA. 1. Altered mental status/dysarthria rule out acute CVA 2. Acute metabolic encephalopathy 3. Mild leukocytosis, resolved -patient's CT head shows no evidence of acute infarct CT angio head and neck shows no evidence of large vessel occlusion, waiting for MRI brain noncontrast -physical therapy evaluation and treatment. Plan discussed with: Patient Date of Service: Nov 05, 2024 Billing Provider: CHETNA KIMBALL MD Common Visit Codes: [id number] INP/OBS CARE(MOD) CHETNA KIMBALL MD Nov 05, 2024 18:36
[2024-11-05 22:59] LABS: Urine Bacteria None Seen /hpf (None Seen)
[2024-11-05 23:03] LABS: Urine Blood Negative /uL (Negative); Urine Clarity Clear (Clear); Urine Color Colorless (Yellow); Urine Protein, UAD Negative (Negative); Urine Specific Gravity 1.009 (1.001-1.035); Urine Squamous Epithelial Cell None Seen /hpf (<5); Urine Urobilinogen Normal (Negative)
[2024-11-05 23:21] LABS: Amphetamine Screen, Urine Neg (NEGATIVE); Barbiturate Scree,Urine Neg (NEGATIVE); Benzodiazephine Screen, Urine Neg (NEGATIVE); Cannabinoid Screen, Urine Pos (NEGATIVE); Cocaine Screen, Urine Neg (NEGATIVE); Opiate Scree,Urine Neg (NEGATIVE); Phencyclidine Screen, Urine Neg (NEGATIVE)
[2024-11-06] VITALS (7 sets, daily range): BP systolic 114–128; BP diastolic 53–67; PULSE 51–61; RESP 17–18; TEMP 97.3–97.9; O2SAT 98–100
--- NOTE | 2024-11-06 13:41 | DVH ---
MRI BRAIN HEAD WO CONTRAST INDICATION: ALOC, slurred speech EXAM DATE: 11/06/2024 12:48 PM COMPARISON: None PROCEDURE: Using a 1.5 Melinda scanner, multisequence multiplanar imaging of the brain was obtained. FINDINGS: The brainshows normal morphology and signal characteristics. No abnormal T2 hyperintensity, diffusion restriction, or susceptibility hypointensity is present. The ventricles are normal in size . The midline structures are intact. The major intracranial flow voids are present. The aerated space s are normal. The orbital contents and extracranial soft tissues appear normal. IMPRESSION: No acute abnormal MRI findings of the brain.
--- NOTE | 2024-11-06 15:54 | DVHDS2 ---
Discharge Summary Date of Admission Nov 04, 2024 at 21:47 Date of Discharge: Nov 06, 2024 Labs/Diagnostic Data: Laboratory Results Test 11/05/24 22:50 11/05/24 04:53 11/04/24 18:46 11/04/24 18:18 Urine Color Colorless (Yellow) Urine Clarity Clear (Clear) Urine pH 5.0 (5.0-9.0) Urine Specific Willard 1.009 (1.001-1.035) Urine Protein Negative (Negative) Urine Ketones Negative (Negative) Urine Blood Negative /uL (Negative) Urine Nitrite Negative (Negative) Urine Bilirubin Negative (Negative) Urine Urobilinogen Normal mg/dL (Negative) Urine Leukocyte Esterase Negative /uL (Negative) Urine RBC None seen /hpf (0 - 3) Urine Microscopic WBC /HPF (0-3) Urine Squamous Epithelial Cells None seen /hpf (<5) Urine Bacteria None seen /hpf (None Seen) Urine Glucose Normal mg/dL (Normal) Urine Opiates Screen Neg (NEGATIVE) Urine Fentanyl Screen Neg (NEGATIVE) Urine Barbiturates Screen Neg (NEGATIVE) Urine Phencyclidine Screen Neg (NEGATIVE) Urine Amphetamines Screen Neg (NEGATIVE) Urine Benzodiazepines Screen Neg (NEGATIVE) Urine Cocaine Screen Neg (NEGATIVE) Urine Cannabinoids Screen Pos (NEGATIVE) White Blood Count 9.5 10^3/uL (4.4-10.8) Red Blood Count 4.43 10^6/uL (4.5-5.90) Hemoglobin 14.1 g/dL (13.5-17.5) Hematocrit 40.7 % (41.0-53.0) Mean Corpuscular Volume 91.7 fL (80.0-100.0) Mean Corpuscular Hemoglobin 31.8 pg (28.0-32.0) Mean Corpuscular Hemoglobin Concent 34.7 g/dL (32.0-36.0) Red Cell Distribution Width 13.6 % (11.8-14.3) Platelet Count 240 10^3/uL (140-450) Mean Platelet Volume 8.2 fL (6.9-10.8) Neutrophils (%) (Auto) 71.5 % (37.0-80.0) Lymphocytes (%) (Auto) 19.5 % (10.0-50.0) Monocytes (%) (Auto) 8.4 % (0.0-12.0) Eosinophils (%) (Auto) 0.4 % (0.0-7.0) Basophils (%) (Auto) 0.2 % (0.0-2.0) Neutrophils # (Auto) 6.8 10 ^3/uL (1.6-8.6) Lymphocytes # (Auto) 1.9 10 ^3/uL (0.4-5.4) Monocytes # (Auto) 0.8 10 ^3/uL (0-1.3) Eosinophils # (Auto) 0 10 ^3/uL (0-0.8) Basophils # (Auto) 0 10 ^3/uL (0-0.2) Nucleated Red Blood Cells 0.0 % Sodium Level 140 mmol/L (136-145) Potassium Level 3.8 mmol/L (3.5-5.1) Chloride Level 108 mmol/L (98-107) Carbon Dioxide Level 24 mmol/L (20-31) Anion Gap 8 (5-15) Blood Urea Nitrogen 13 mg/dL (9-23) Creatinine 1.06 mg/dL (0.700-1.30) Glomerular Filtration Rate Calc 81 mL/min (>90) BUN/Creatinine Ratio 12.3 (10.0-20.0) Serum Glucose 144 mg/dL (74-106) Calcium Level 9.2 mg/dL (8.7-10.4) Total Bilirubin 0.4 mg/dL (0.2-1.0) Aspartate Amino Transferase (AST) 18 U/L (13-40) Alanine Aminotransferase (ALT) 16 U/L (7-40) Alkaline Phosphatase 93 U/L (46-116) Total Protein 6.0 g/dL (5.7-8.2) Albumin 3.6 g/dL (3.2-4.8) POC Glucose 146 mg/dl (70-106) Prothrombin Time 10.7 sec (9.3-11.8) Prothrombin Time INR 1.01 (0.9-1.15) Activated Partial Thromboplast Time 23.5 SEC (24.5-34.5) Magnesium Level 2.5 mg/dL (1.6-2.6) Plasma/Serum Blood Alcohol < 3.0 mg/dL (<10) Test 11/04/24 18:01 Salicylates Level < 3.0 mg/dL (-30) Acetaminophen Level < 2.0 UG/ML (10.0-20.0) Other Laboratory Tests 11/05/24 04:53 Brief Hx & Hospital Course: 59-year-old male who initially presented to the hospital with altered mental status dysarthria currently, eventually admitted to tele floor for ruling out acute CVA. Patient underwent CT head which shows no evidence of acute infarct. CT angio head and neck shows no evidence of large vessel occlusion. MRI brain was done which shows no evidence of acute infarct. Patient is currently being discharged under stable condition. Patient and patient's told me that patient is back to baseline. Currently denies any altered mental status or any concern. Condition at Discharge: Stable Final Diagnosis/Problems List 59-year-old male who initially presented to the hospital with altered mental status dysarthria currently ruling out acute CVA. 1. Altered mental status/dysarthria rule out acute CVA 2. Acute metabolic encephalopathy 3. Mild leukocytosis, resolved Discharge Disposition: Home SNF Discharge Will this Physician continue t: No Discharge Instruct/Medications Diet: Cardiac 2g Na,low cholest Activity: No Restrictions, As Tolerated Follow Up/Referral: Follow up with PCP in 1-2 weeks Medications: Resume home medications Discharge Statement: "Patient was advised to return to the ER or call 911 if any headaches, dizziness, shortness of breath, chest pain, abdominal pain, bleeding, fevers, or worsening of medical condition. Patient was counseled about treatment plan, medications, possible side effects, patientverbalized understanding. All questions were answered to the best of my ability. This discharge took greater then 30 minutes in planning, reviewing documentation, counseling the patient, and discussing with other team members." ASSESSMENT ASSESSMENT Assessment 59-year-old male who initially presented to the hospital with altered mental status dysarthria currently ruling out acute CVA. 1. Altered mental status/dysarthria rule out acute CVA 2. Acute metabolic encephalopathy 3. Mild leukocytosis, resolved Date of Service: Nov 06, 2024 Billing Provider: CHETNA KIMBALL MD Common Visit Codes: [id number]/OBS DISCH DAY >30min CHETNA KIMBALL MD Nov 06, 2024 15:53
[2024-11-07 10:35] LABS: Hepatitis B Surface Antigen Negative (Negative); Hepatitis C Antibody Negative (Negative)
--- NOTE | 2024-11-07 12:15 | ECG ---
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
== END 2024-11-06 17:50 | disposition home or self-care (01) | DRG 52 ==
LOC: ER 18:10 → OVERFLOW 21:47 → TELE-WESTW 23:57
PROVIDERS: ADMIT Nurse Practitioner Family; ATTEND Nurse Practitioner Family
DX: G93.41 Metabolic encephalopathy (principal); D72.829 Elevated white blood cell count, unspecified; L40.9 Psoriasis, unspecified; R47.1 Dysarthria and anarthria; G31.9 Degenerative disease of nervous system, unspecified
CPT/HCPCS: 36415; 70450; 70496; 70498; 70551; 71045; 80053; 80307; 80320; 80329; 81001; 82962; 83735; 85025; 85610; 85730; 86803; 87340; 93005; 96361; 96365; 99291; G0378